=== PATIENT | male | born 1955 | race Caucasian/White ===

== ENCOUNTER 2021-08-29 14:41 | Outpatient (REF) | payer OTHER, SELFPAY ==
--- NOTE | 2021-09-05 15:13 | MHC.AU.AEV ---
Adult Audiological Evaluation Date of Visit: 08/29/21 Reason for Appointment: Patient has been noticing gradually increasing hearing difficulty. History of occupational noise exposure. Does patient feel they have a hearing loss?: Yes If Yes, Which Ear?: Both Ears When Was Hearing Difficulty First Noticed?: Over past 1-1.5 years Hearing Handicap Inventory Does a hearing problem cause you to feel embarrassed when meeting new people?: Sometimes Does a hearing problem cause you to feel frustrated when talking to members of your family?: Yes Do you have difficulty when someone speaks in a whisper?: Yes Do you feel handicapped by a hearing problem?: Sometimes Does a hearing problem cause you difficulty when visiting friends, relatives, or neighbors?: Yes Does a hearing problem cause you to attend yarsanism service services less often than you would like?: Sometimes Does a hearing problem cause you to have arguments with family members?: Yes Does a hearing problem cause you difficulty when listening to TV or radio?: Yes Do you feel that any difficult with your hearing limits or hampers your personal or social life?: Yes Does a hearing problem cause you difficulty when in a restaurants with relatives or friends?: Yes HHIE SCORE: 34 Based on HHIE score, patient has: Severe perceived hearing handicap Ear History: Ear Deformity: None Reported Recent Ear Drainage: None Reported Recent Ear Pain: None Reported Recent Ear Infections: None Reported Ear Infections in Childhood: None Reported History of Ear Wax Buildup: None Reported Previous Ear Surgery: None Reported Bothersome Tinnitus/Ringing/Noises in Ears: None Reported Ear used on the phone: Right Ear Blocked/Full Sensation in Ear(s): None Reported History of occupational noise exposure?: Yes History: Yes Medical History: Medical History: Hypertension. History of heart attack. Otoscopy: Right Ear: Unremarkable Left Ear: Unremarkable Tympanometry: Tympanometry performed due to: To assess integrity of the middle ear system Right Ear: Hypercompliant Middle Ear System (Type Ad) Left Ear: Hypercompliant Middle Ear System (Type Ad) Hearing Evaluation: Transducer(s) Used: Insert Earphones Method: Conventional Audiometry Stimuli Used: Pure Tones Right Ear: Description of Hearing: Mild to profound sensorineural hearing loss Left Ear: Description of Hearing: Borderline/mild to severe sensorineural hearing loss Speech Recognition Threshold (SRT): Method Used: Recorded Lists Stimuli Used: Spondee Words Right Ear: 35 dBHL Left Ear: 25 dBHL Word Discrimination: Method: Recorded Lists Word Lists Used:: W-22 Right Ear: 76% at 80 dBHL Left Ear: 88% at 65 dBHL Most Comfortable Level (MCL): Right Ear: 80 dBHL Left Ear: 65 dBHL Recommendations: Audiological re-evaluation in one year. Referral to Ear, Nose, and Throat is recommended to address newly diagnosed asymmetrical hearing loss Trial with amplification is recommended. See Hearing Aid Evaluation report for more information. Diagnosis: Primary Diagnosis: H90.3 Bilateral Sensorineural Hearing Loss Signature: Provider: Keeley Brown, CCC-A
--- NOTE | 2021-09-05 15:16 | MHC.AU.HAS ---
Hearing Aid Evaluation Date of Visit: 08/29/21 Historical Information: Description of Hearing: Right: Mild to profound sensorineural hearing loss, Left: Borderline/mild to severe sensorineural hearing loss Current personal amplification information, if applicable: Summary: Patient was seen for audiological evaluation (see separate report for details). Trial with amplification is recommended. Hearing aid options were discussed. Hearing Aid Prescription: Based on the individual?s shared listening needs, communication environments, dexterity, desire for connectivity, and personal preferences, the following prescription for amplification has been made: Right ear: Sat Instructor: Phonak Model: [place] P70-R Battery Size: Rechargeable Color: P1 Soil Engineer: 1M Left ear: Sat Instructor: Phonak Model: [place] P70-R Battery Size: Rechargeable Color: P1 Soil Engineer: 1M Action Taken/Action Needed: Medical Clearance to be requested from PCP/ENT Hearing Instrument Fitting to be scheduled when materials arrive Primary Diagnosis: H90.3 Bilateral Sensorineural Hearing Loss Signature: Provider: Keeley Brown, CCC-A
--- NOTE | 2021-09-05 15:16 | MHC.AU.MED ---
Medical Clearance for Hearing Instrumentation Date: 09/05/21 Patient Name: Antonio Johnson Date of : 1955 Primary Care Provider: Referring Provider: Aldo Schmidt MD We have seen your patient on 08/29/21 and have determined that they are a candidate for amplification (See accompanying report). Specifically, they would benefit from: Hearing aid use in both ears There is a statute that addresses Medical Evaluation Requirements prior to fitting a patient with a hearing aid. According to [place] statute 265 CMR:6.03(1), (a) General. Except as provided in 265 CMR 6.03(1)(b), a poultry processor shall not sell a hearing aid unless the prospective user has presented to the poultry processor a written statement signed by a licensed physician that states that the patient's hearing loss has been medically evaluated and the patient may be considered a candidate for a hearing aid. The medical evaluation must have taken place within the preceding six months. Please note: Due to the [place] Statute referenced above, we cannot accept a signature other than that of a licensed physician. MOTION PICTURE EQUIPMENT MACHINIST and PA signatures cannot be accepted. I am in agreement with the above recommendation. There is no medical contraindication for hearing instrumentation. Physician Signature Date Physician Name (Printed)
== END 2021-08-29 14:42 | disposition home or self-care (01) ==
LOC: HO.SH 14:41
PROVIDERS: Visit Provider Internal Medicine
DX: H90.3 Sensorineural hearing loss, bilateral (principal)
CPT/HCPCS: 92557; 92567; 92591